=== PATIENT | male | born 1995 | race Caucasian/White ===

== ENCOUNTER 2017-03-03 08:02 | Emergency (ER) | payer BC ==
[2017-03-03 08:22] VITALS: BP 116/77
--- NOTE | 2017-03-03 08:43 | UC ---
Throat Pain/Nasal Home HPI - HPI Summary HPI Summary: Sore throat, congestion, chills for 2 days - History of Current Complaint Chief Complaint: UCRespiratory Stated Complaint: SORE THROAT CONGESTION DIZZY Time Seen by Provider: 03/03/17 08:11 Hx Obtained From: Patient Onset/Duration: Gradual Onset, Lasting Days - 2 Severity: Mild Pain Intensity: 4 Pain Scale Used: 0-10 Numeric Cough: None Associated Signs & Symptoms: Positive: Fever - ?subjective. Negative: Sinus Discomfort, Nasal Discharge - Allergies/Home Medications Allergies/Adverse Reactions: Allergies Allergy/AdvReac Type Severity Reaction Status Date / Time No Known Allergies Allergy Verified 11/27/13 11:03 PMH/Surg Hx/FS Hx/Imm Hx Previously Healthy: Yes - Surgical History Surgical History: Yes Surgery Procedure, Year, and Place: 2012-WISDOM TEETH REMOVED W/ANESTHESIA - Family History Known Family History: Positive: None - Social History Occupation: Employed Part-time, Student Lives: With Family Alcohol Use: None Substance Use Type: None Smoking Status (MU): Never Smoked Tobacco - Immunization History Most Recent Influenza Vaccination: 2015 Review of Systems Constitutional: Chills, Fatigue Skin: Negative Eyes: Negative ENT: Sore Throat Respiratory: Negative Cardiovascular: Negative Gastrointestinal: Negative Genitourinary: Negative Motor: Negative Neurovascular: Negative Musculoskeletal: Negative Neurological: Negative Psychological: Negative Is Patient Immunocompromised?: No All Other Systems Reviewed And Are Negative: Yes Physical Exam Triage Information Reviewed: Yes Appearance: Well-Appearing, No Pain Distress, Well-Nourished Vital Signs: Initial Vital Signs Temp 97.9 F 03/03/17 08:09 Pulse 54 03/03/17 08:09 Resp 16 03/03/17 08:09 BP 116/77 03/03/17 08:09 Pulse Ox 100 03/03/17 08:09 Vital Signs Reviewed: Yes Eye Exam: Normal Eyes: Positive: Conjunctiva Clear ENT Exam: Normal ENT: Positive: Normal ENT inspection, Hearing grossly normal, Pharynx normal, TMs normal. Negative: Nasal congestion, Nasal drainage, Tonsillar swelling, Tonsillar exudate, Trismus, Muffled/hoarse voice Neck exam: Normal Neck: Positive: Supple, Nontender Respiratory Exam: Normal Respiratory: Positive: Chest non-tender, Lungs clear, Normal breath sounds, No respiratory distress, No accessory muscle use Cardiovascular Exam: Normal Cardiovascular: Positive: RRR, No Murmur, Pulses Normal, Brisk Capillary Refill Musculoskeletal Exam: Normal Musculoskeletal: Positive: Strength Intact, ROM Intact, No Edema Neurological Exam: Normal Neurological: Positive: Alert, Muscle Tone Normal Psychological Exam: Normal Psychological: Positive: Normal Response To Family Diagnostics - Laboratory Diagnostic Studies Completed/Ordered: RST (-) Throat Pain/Nasal Course/Dx - Course Assessment/Plan: REst , increase fluids, follow with pcp prn - Differential Dx/Diagnosis Differential Diagnosis/HQI/PQRI: Influenza, Otitis Media, Pharyngitis, Sinusitis , URI Provider Diagnoses: URI Discharge - Discharge Plan Condition: Stable Disposition: HOME Prescriptions: Fluticasone NASAL SPRAY 50MCG* [Flonase NASAL SPRAY 50MCG*] 2 spray BOTH NARES DAILY #1 btl Patient Education Materials: Viral Syndrome (ED) Forms: *Work Release Referrals: Norris Moreno MD [Primary Care Provider] - If Needed
== END 2017-03-03 09:40 | disposition home or self-care (01) ==
LOC: UCEAST 08:02
DX: J06.9 Acute upper respiratory infection, unspecified (principal)
CPT/HCPCS: 87651; 99212; G0463

== ENCOUNTER 2018-09-12 19:12 | Emergency (ER) | payer BC ==
[2018-09-12 19:59] VITALS: BP 116/66
--- NOTE | 2018-09-12 20:12 | UC ---
Skin Complaint HPI - HPI Summary HPI Summary: 23 y/o male presents to the urgent care c/o tick bite on his Rt wrist possible for 1 day. Pt noticed 1 hr ago and removed it. Pt states he was doing outside work yesterday. But he is not sure it he got it there. He also has dogs and he probably got it from them. No Hx of tick bite in the past. Pt states tick was not engorged. Pt denies fever, URI, SOB, chest pain, DEL CID, abdominal pain, N/V/D, joint pains. - History of Current Complaint Chief Complaint: UCSkin Time Seen by Provider: 09/12/18 19:56 Stated Complaint: TICK BITE Hx Obtained From: Patient Onset/Duration: Sudden Onset, Lasting Days - 1 day, Resolved - he removed tick about 1hr ago Skin Exposure Onset/Duration: Days Ago - 1 day Timing: Constant Onset Severity: Mild Current Severity: Mild Pain Intensity: 2 Pain Scale Used: 0-10 Numeric Location: Discrete - RT wrist Character: Pain Aggravating Factor(s): Touch Alleviating Factor(s): Other - tick removal Associated Signs & Symptoms: Positive: Rash - tick bite, Tenderness - mild. Negative: Fever, Chills, Drainage Related History: Possible Reaction to: Insect - Allergy/Home Medications Allergies/Adverse Reactions: Allergies Allergy/AdvReac Type Severity Reaction Status Date / Time No Known Allergies Allergy Verified 09/12/18 19:58 Home Medications: Home Medications L.acidoph,Paracasei, B.lactis [Probiotic] 1 each PO DAILY 09/12/18 [History Confirmed 09/12/18] PMH/Surg Hx/FS Hx/Imm Hx Previously Healthy: Yes - Pt denies PMHX - Surgical History Surgical History: Yes Surgery Procedure, Year, and Place: 2012-WISDOM TEETH REMOVED W/ANESTHESIA - Family History Known Family History: Positive: Hypertension, Diabetes - Social History Occupation: Employed Full-time Lives: With Family Alcohol Use: None Substance Use Type: None Smoking Status (MU): Never Smoked Tobacco - Immunization History Most Recent Influenza Vaccination: 2016 Review of Systems All Other Systems Reviewed And Are Negative: Yes Constitutional: Positive: Negative Skin: Positive: Other - tick bite in the right wrist Eyes: Positive: Negative ENT: Positive: Negative Respiratory: Positive: Negative Cardiovascular: Positive: Negative Gastrointestinal: Positive: Negative Genitourinary: Positive: Negative Motor: Positive: Negative Neurovascular: Positive: Negative Musculoskeletal: Positive: Negative Neurological: Positive: Negative Psychological: Positive: Negative Is Patient Immunocompromised?: No Physical Exam - Summary Physical Exam Summary: Vital Signs Reviewed: Yes General: well developed, well nourished male sitting in the examining table w/ o any apparent distress. Eyes: Positive: Conjunctiva Clear - PERRLA, EOMI ENT: Positive: Normal ENT inspection, Hearing grossly normal, Pharynx normal, TMs normal Neck: Positive: Supple, Nontender, No Lymphadenopathy Respiratory: Positive: Chest nontender, Lungs clear, Normal breath sounds Cardiovascular: Positive: RRR, No Murmur, Pulses Normal Abdomen Description: Positive: Nontender, No Organomegaly, Soft. Negative: CVA Tenderness (R), CVA Tenderness (L) Bowel Sounds: Positive: Present Musculoskeletal: Positive: Strength Intact, ROM Intact, No Edema Neurological Exam: Normal Psychological Exam: Normal Skin: Positive: rashes - medial aspect of the RT wrist with tick bite with surrounding erythema, non tender to palpation. tick no longer present, no swelling or drainage observed. Triage Information Reviewed: Yes Vital Signs: Initial Vital Signs Temp 99.4 F 09/12/18 19:54 Pulse 75 09/12/18 19:54 Resp 18 09/12/18 19:54 BP 116/66 09/12/18 19:54 Pulse Ox 97 09/12/18 19:54 Course/Dx - Course Course Of Treatment: 23 y/o male presents to the urgent care c/o tick bite on his Rt wrist possible for 1 day. Pt noticed 1 hr ago and removed it. Pt states he was doing outside work yesterday. But he is not sure it he got it there. He also has dogs and he probably got it from them. No Hx of tick bite in the past. Pt states tick was not engorged. Pt denies fever, URI, SOB, chest pain, DEL CID, abdominal pain, N/V/D, joint pains. Hx obtained. Pt w/ medial aspect of the RT wrist with tick bite with surrounding erythema, non tender to palpation. tick no longer present, no swelling or drainage observed on examination. the skin was cleaned w/ alcohol swab around tick bite. Antibiotic prophylaxis with Doxycycline given to the patient to prevent lyme Disease.. Pt tolerated well medication. Pt advised to observe the area for the development or Erythema Migrans for upto 30 days following exposure. Advised if he develops fever or erythema Migrans to return to the clinic or PCP for further treatment . D/C instructions explained. Pt understood and agreed with plan of care. - Differential Diagnoses - Skin Complaint Differential Diagnoses: Abscess, Cellulitis, Local Allergic Reaction, Tick Born Illness, Urticaria, Other - bee sting, insect bite - Diagnoses Provider Diagnosis: Tick bite Discharge - Sign-Out/Discharge Documenting (check all that apply): Patient Departure - D/C home All imaging exams completed and their final reports reviewed: No Studies - Discharge Plan Condition: Stable Disposition: HOME Patient Education Materials: Tick Bite (ED) Referrals: Norris Moreno MD [Primary Care Provider] - 2 Weeks Lacy VÁSQUEZ,Maurilio Hayward [Medical Doctor] - If Needed Additional Instructions: 1-Please observe the area for the development or Erythema Migrans for upto 30 days following exposure. Components of the tick saliva can cause transient erythema that should not be confused with Erythema Migrans. If you develop the bull's eye rash, fever, joint pains please return to the urgent care or f/u with your PCP for further management. 2-Antibiotic prophylaxis with Doxycycline was given to you today to prevent lyme Disease. Lyme serology can be drawn in 2-3 weeks with your PCP to r/o Lyme disease since there is probability of negative results at early exposure. - Billing Disposition and Condition Condition: STABLE Disposition: Home - Attestation Statements Provider Attestation: I was available for consult. This patient was seen by the ЮЛИЯ. The patient was not presented to, seen by, or examined by me. -Mari
[2018-09-12] MEDS ORDERED: DOXYcycline CAP(*) 100 MG PO ONE (20:13)
== END 2018-09-12 21:00 | disposition home or self-care (01) ==
LOC: UCEAST 19:12
DX: S60.861A Insect bite (nonvenomous) of right wrist, initial encounter (principal); R21 Rash and other nonspecific skin eruption; W57.XXXA Bitten or stung by nonvenomous insect and other nonvenomous arthropods, initial encounter; Y92.9 Unspecified place or not applicable
CPT/HCPCS: 99201; A9270-GY; G0463

== ENCOUNTER 2018-11-24 14:31 | Emergency (ER) | payer BC, OTHER ==
[2018-11-24 14:44] VITALS: BP 104/68
--- NOTE | 2018-11-24 15:10 | UC ---
Throat Pain/Nasal Home HPI - HPI Summary HPI Summary: 23 yo male with sore throat x 1 week no f/c no uri symptoms no reflux no fatigue - History of Current Complaint Chief Complaint: UCRespiratory Stated Complaint: SORE THROAT Time Seen by Provider: 11/24/18 14:50 Hx Obtained From: Patient Onset/Duration: Gradual Onset, Lasting Days Severity: Mild Pain Intensity: 1 Pain Scale Used: 0-10 Numeric Cough: None Associated Signs & Symptoms: Positive: Negative - Epiglottits Risk Factors Epiglottis Risk Factors: Negative - Allergies/Home Medications Allergies/Adverse Reactions: Allergies Allergy/AdvReac Type Severity Reaction Status Date / Time No Known Allergies Allergy Verified 11/24/18 14:44 Home Medications: Home Medications NK [No Home Medications Reported] 11/24/18 [History Confirmed 11/24/18] PMH/Surg Hx/FS Hx/Imm Hx Previously Healthy: Yes - Surgical History Surgical History: Yes Surgery Procedure, Year, and Place: 2012-WISDOM TEETH REMOVED W/ANESTHESIA - Family History Known Family History: Positive: Hypertension, Diabetes Negative: Cardiac Disease - Social History Alcohol Use: None Substance Use Type: None Smoking Status (MU): Never Smoked Tobacco - Immunization History Most Recent Influenza Vaccination: 2015 Review of Systems All Other Systems Reviewed And Are Negative: Yes Constitutional: Positive: Negative Skin: Positive: Negative Eyes: Positive: Negative ENT: Positive: Sore Throat Respiratory: Positive: Negative Cardiovascular: Positive: Negative Gastrointestinal: Positive: Negative Genitourinary: Positive: Negative Motor: Positive: Negative Neurovascular: Positive: Negative Musculoskeletal: Positive: Negative Neurological: Positive: Negative Psychological: Positive: Negative Physical Exam Triage Information Reviewed: Yes Appearance: Well-Appearing, No Pain Distress, Well-Nourished Vital Signs: Initial Vital Signs Temp 98.1 F 11/24/18 14:40 Pulse 53 11/24/18 14:40 Resp 12 11/24/18 14:40 BP 104/68 11/24/18 14:40 Pulse Ox 100 11/24/18 14:40 Vital Signs Reviewed: Yes Eyes: Positive: Conjunctiva Clear ENT: Positive: Hearing grossly normal, Pharyngeal erythema. Negative: Nasal congestion, Nasal drainage, Tonsillar swelling, Tonsillar exudate, Trismus, Muffled voice, Dental tenderness Neck: Positive: Supple, Nontender, No Lymphadenopathy Respiratory: Positive: Lungs clear, Normal breath sounds, No respiratory distress, No accessory muscle use Cardiovascular: Positive: RRR, No Murmur Musculoskeletal: Positive: ROM Intact, No Edema Neurological: Positive: Alert Psychological Exam: Normal Skin Exam: Normal Throat Pain/Nasal Course/Dx - Differential Dx/Diagnosis Provider Diagnosis: Pharyngitis Discharge - Sign-Out/Discharge Documenting (check all that apply): Patient Departure All imaging exams completed and their final reports reviewed: No Studies - Discharge Plan Condition: Stable Disposition: HOME Patient Education Materials: Pharyngitis (ED) Referrals: Norris Moreno MD [Primary Care Provider] - 5 Days Additional Instructions: recheck for new or worsening symptoms recheck in 5-7 days if not better a throat culture and mono test was well as blood count is pending - Billing Disposition and Condition Condition: STABLE Disposition: Home
[2018-11-24 19:19] LABS: ABS Eosinophils 0.2 10^3/ul (0-0.6); ABS Lymphocytes 1.6 10^3/ul (1.0-4.8); ABS Monocytes 0.3 10^3/ul (0-0.8); ABS Neutrophils 1.5 10^3/ul (1.5-7.7); Eosinophil % 6.2 %; Hematocrit 48 % (42-52); Hemoglobin 16.8 g/dL (14.0-18.0); Lymphocyte % 44.3 %; Mean Corpuscular HGB Conc 35 g/dL (31-36); Mean Corpuscular Hemoglobin 33 pg (27-31); Mean Corpuscular Volume 93 fL (80-94); Mean Platelet Volume 9.4 fL (7.4-10.4); Nucleated Red Blood Cells % 0.1; Platelet Count 239 10^3/uL (150-450); Red Blood Count 5.19 10^6 /uL (4.18-5.48); Red Cell Distribution Width 12 % (10-15); White Blood Count 3.6 10^3/uL (3.5-10.8)
--- NOTE | 2018-11-25 10:57 | ED ---
Progress - Progress Note Progress Note: Pt's labs reveals no significant findings on CBC and neg monospot. If sx persist , f/u w/ PCP. If danger s/sx present, return here or go to ED. Nursing aware. Course/Dx - Diagnoses Provider Diagnoses: Pharyngitis Discharge - Sign-Out/Discharge Documenting (check all that apply): Post-Discharge Follow Up All imaging exams completed and their final reports reviewed: No Studies - Discharge Plan Condition: Stable Disposition: HOME Patient Education Materials: Pharyngitis (ED) Referrals: Norris Moreno MD [Primary Care Provider] - 5 Days Additional Instructions: recheck for new or worsening symptoms recheck in 5-7 days if not better a throat culture and mono test was well as blood count is pending - Billing Disposition and Condition Condition: STABLE Disposition: Home
== END 2018-11-24 15:20 | disposition home or self-care (01) ==
LOC: UCEAST 14:31
DX: J02.9 Acute pharyngitis, unspecified (principal)
CPT/HCPCS: 36415; 85025; 86308; 86618; 87070; 87651; 99211; G0463

== ENCOUNTER 2019-07-04 14:51 | Emergency (ER) | payer BC, OTHER ==
[2019-07-04 15:06] VITALS: BP 123/80
--- NOTE | 2019-07-04 16:59 | UC ---
Skin Complaint HPI - HPI Summary HPI Summary: PATIENT PRESENTS WITH ABOUT ONE WEEK OF A CIRCULAR LESION ON THE SHAFT OF HIS PENIS. DENIES PAIN. DENIES ITCH. NO DRAINAGE. NO PENILE DISCHARGE. IS NOT CURRENTLY SEXUALLY ACTIVE AND IS NOT CONCERNED AT ALL ABOUT STDS. NO FEVER, HEADACHE, JOINT PAIN. STATES HE HAS BEEN HAVING SOME ISSUES WITH NIGHT SWEATS OVER THE PAST 6 WEEKS OR SO. HAS SEEN HIS PCP FOR THIS. - History of Current Complaint Chief Complaint: UCSkin Time Seen by Provider: 07/04/19 15:03 Stated Complaint: TICK BITE Hx Obtained From: Patient Onset/Duration: Gradual Onset, Lasting Days, Still Present Timing: Constant Onset Severity: Mild Current Severity: Mild Pain Intensity: 0 Pain Scale Used: 0-10 Numeric Location: Discrete - SHAFT OF PENIS Character: Redness Aggravating Factor(s): Nothing Alleviating Factor(s): Nothing Associated Signs & Symptoms: Positive: Rash - Allergy/Home Medications Allergies/Adverse Reactions: Allergies Allergy/AdvReac Type Severity Reaction Status Date / Time No Known Allergies Allergy Verified 07/04/19 15:06 PMH/Surg Hx/FS Hx/Imm Hx Previously Healthy: Yes - Surgical History Surgical History: Yes Surgery Procedure, Year, and Place: 2012-WISDOM TEETH REMOVED W/ANESTHESIA. 2012 CUBITAL TUNNEL SURGERY, RIGHT ARM - Family History Known Family History: Positive: Hypertension, Diabetes Negative: Cardiac Disease - Social History Alcohol Use: Weekly Substance Use Type: None Smoking Status (MU): Never Smoked Tobacco - Immunization History Most Recent Influenza Vaccination: 2015 Review of Systems All Other Systems Reviewed And Are Negative: Yes Constitutional: Positive: Negative Skin: Positive: Rash Respiratory: Positive: Negative Cardiovascular: Positive: Negative Gastrointestinal: Positive: Negative Musculoskeletal: Positive: Negative Physical Exam Triage Information Reviewed: Yes Appearance: Well-Appearing, No Pain Distress, Well-Nourished Vital Signs: Initial Vital Signs Temp 99.0 F 07/04/19 15:02 Pulse 65 07/04/19 15:02 Resp 16 07/04/19 15:02 BP 123/80 07/04/19 15:02 Pulse Ox 99 07/04/19 15:02 Vital Signs Reviewed: Yes Eyes: Positive: Conjunctiva Clear ENT: Positive: Hearing grossly normal Neck: Positive: Supple Respiratory: Positive: No respiratory distress, No accessory muscle use Cardiovascular: Positive: Pulses Normal Musculoskeletal: Positive: No Edema Neurological: Positive: Alert Psychological: Positive: Age Appropriate Behavior Skin: Positive: Rashes - 2.5CM ERYTHEMATOUS RING WITH SCALY EDGE AND CENTRAL CLEARING ON DORSAL SURFACE OF SHAFT OF PENIS ABUTTING THE GLANS. NON TENDER Course/Dx - Course Course Of Treatment: APPEARANCE OF LESION ON PENIS IS CONSISTENT WITH TINEA. RX FOR CLOTRIMAZOLE TO USE TWICE DAILY. FOLLOW-UP WITH DERMATOLOGY IF NOT IMPROVING OVER THE NEXT 2-4 WEEKS. - Diagnoses Provider Diagnosis: Tinea corporis Discharge ED - Sign-Out/Discharge Documenting (check all that apply): Patient Departure All imaging exams completed and their final reports reviewed: No Studies - Discharge Plan Condition: Stable Disposition: HOME Prescriptions: Clotrimazole 1% CREAM* [Clotrimazole 1%*] 1 applic TOPICAL BID #1 tube Patient Education Materials: Tinea Corporis (ED) Referrals: Norris Moreno MD [Primary Care Provider] - If Needed Additional Instructions: THE RASH ON YOUR PENIS IS CONSISTENT IN APPEARANCE WITH RINGWORM. APPLY THE ANTIFUNGAL CREAM TWICE DAILY FOR UP TO 4 WEEKS. IF YOU DO NOT RESPOND TO THIS TREATMENT FOLLOW UP WITH DERMATOLOGY. DERMATOLOGY IN [place] DR. CRISTINO LINARES (DOES NOT SEE PTS ON MONDAYS OR TUESDAYS. DOES NOT TAKE MEDICAID) [facility], [facility] [address]; [address] [place] [address] Dr. Lauren Multani Address: [address] [place] [address] [address] [place] [address] DR. JEREMY JENNINGS [facility] D[facility] [address], [place] [address] [facility] [place] LOCATION [address] [place] [address] [place] [address] Liliam Duncan DERMATOLOGY [place] DR. REANNA ALVAREZ [phone] - Billing Disposition and Condition Condition: STABLE Disposition: Home
== END 2019-07-04 15:45 | disposition home or self-care (01) ==
LOC: UCEAST 14:51
DX: B35.4 Tinea corporis (principal)
CPT/HCPCS: 99212; G0463